=== PATIENT | male | born 1985 | race Caucasian/White ===

== ENCOUNTER 2020-01-04 09:56 | Emergency (ER) | payer OTHER ==
--- NOTE | 2020-01-04 11:31 | ED Physician Documentation ---
PD HPI LOWER EXT INJURY - Stated complaint Stated Complaint: RT LEG PX - Chief complaint Chief Complaint: Ext Problem - History obtained from History obtained from: Patient - History of Present Illness PD HPI LOW EXT INJURY LOCATION: Right, Lower leg, Ankle, Foot Type of injury: No: Fall, Twist Timing - onset: How many weeks ago (2) Timing - duration: Weeks (2) Timing - details: Intermittant Improved by: Rest Worsened by: Other (exercise - for 2 weeks he has had right lateral lower leg pain and cramping with exercise, consistently about 15 minutes into workout, and gets pain lateral right lower leg radiating to right lateral foot and feeling of numbness lateral/plantar foot and feeling of foot being weaker. It improves with rest. With the exercise, he gets feeling of swelling and pain lateral lower leg. No discoloration of the foot.) Associated symptoms: Weakness, Numbness, Swelling (lateral right lower leg with exercise.). No: Discolored Contributing factors: No: Anticoagulated, Prior ortho surgery Similar symptoms before: Has not had sx before Recently seen: Clinic (seem in [facility] today and referred to ER for evaluation) Review of Systems Constitutional: denies: Fever, Chills, Myalgias Nose: denies: Rhinorrhea / runny nose, Congestion Throat: denies: Sore throat Respiratory: denies: Cough GI: denies: Abdominal Pain, Nausea, Vomiting Skin: denies: Rash, Lesions PD PAST MEDICAL HISTORY - Past Medical History Past Medical History: No Cardiovascular: None Respiratory: None Musculoskeletal: None - Past Surgical History Past Surgical History: Yes Ortho: Rotator cuff repair HEENT: Myringotomy (tubes) - Present Medications Home Medications: Ambulatory Orders Medication Instructions Recorded Confirmed Naproxen 500 mg PO BID #20 tablet 01/04/20 - Allergies Allergies/Adverse Reactions: Allergies Allergy/AdvReac Type Severity Reaction Status Date / Time No Known Drug Allergies Allergy Verified 01/04/20 10:04 - Social History Does the pt smoke?: Yes Smoking Status: Current some day smoker Does the pt drink ETOH?: Yes Does the pt have substance abuse?: No - Immunizations Immunizations are current?: Yes PD ED PE NORMAL - Vitals Vital signs reviewed: Yes - General General: Alert and oriented X 3, No acute distress, Well developed/nourished, Other (very muscular, well developed) - Derm Derm: Normal color, Warm and dry - Extremities Extremities: Normal ROM s pain, No edema, No calf tenderness / cord, Other (lower leg appears normal now. ) - Neuro Neuro: Alert and oriented X 3, No motor deficit, No sensory deficit Results - Vitals Vitals: Vital Signs - 24 hr 01/04/20 01/04/20 10:02 14:18 Temperature 37 C Heart Rate 99 88 Respiratory 17 16 Rate Blood Pressure 137/81 H 130/85 H O2 Saturation 96 100 Oxygen O2 Source Room air - Labs Labs: Laboratory Tests 01/04/20 12:40 Sodium 137 Potassium 4.0 Chloride 102 Carbon Dioxide 26 Anion Gap 9.0 BUN 17 Creatinine 0.8 Estimated GFR (MDRD) 111 Glucose 92 Calcium 9.3 Total Bilirubin 0.9 AST 55 H ALT 118 H Alkaline Phosphatase 52 Total Creatine Kinase 178 Total Protein 8.2 Albumin 5.0 Globulin 3.2 Albumin/Globulin Ratio 1.6 Lipase 39 - Rads (name of study) duplex right lower leg Radiology: Prelim report reviewed (no DVT), See rad report PD MEDICAL DECISION MAKING - ED course Complexity details: considered differential (Sounds concerning for exertional compartment syndrome. He does not have symptoms at rest. He was seen in [facility] clinic and referred to ER with that concern, so I wonder if they were not distinguishing exertional from traumatic compartment syndrome or such, as exertional version is not emergent, but needs to not have the exertion until specialist evaluation. Did get CK to ensure no muscle injury with symptoms earlier today. and U/S to ensure not DVt instead. ), d/w patient, d/w testing consultant (Dr Montanez, drill press operator numerical control Ortho, and refers it to [facility] Orth[facility] as outpt. 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 You can use some anti- inflammatories such as naproxen twice daily for the next 7 to 10 days. Your ultrasound showed normal blood flow through the leg in the area. It does sound like it may be exertional compartment syndrome. Avoid the exertion and no prolonged standing or walking. Follow-up with orthopedics regarding further testing for this. [place]. Otherwise can follow-up with orthopedics here in [place]. Recheck if the discomfort is more consistent and even without exertion. Forms: Activity restrictions Discharge Date/Time: 01/04/20 14:19
[2020-01-04 13:07] LABS: ALBUMIN/GLOBULIN RATIO 1.6 (1.0-2.2); BILIRUBIN,TOTAL 0.9 mg/dL (0.2-1.0); CALCIUM 9.3 mg/dL (8.5-10.3); CREATININE 0.8 mg/dL (0.6-1.2); TOTAL PROTEIN 8.2 g/dL (6.7-8.2)
--- NOTE | 2020-01-04 13:32 | Ultrasound Report ---
Reason: right calf pain with exercise Procedure Date: 01/04/2020 Accession Number: [id number] / [id number] Procedure: US - Duplex Ext Veins Right CPT Code: Final Report FULL RESULT: EXAM: RIGHT LOWER EXTREMITY VENOUS ULTRASOUND EXAM DATE: 01/04/2020 12:58 PM. CLINICAL HISTORY: Right calf pain with exercise. COMPARISON: None. TECHNIQUE: Real-time sonographic vascular imaging was performed by the contact lens fitter through the lower extremity utilizing both color-flow and Doppler spectral analysis. Multiple new accounts banking representative static images were saved for review. FINDINGS: Common Femoral Vein (CFV): Normal. CFV-GSV Junction: Normal. Profunda Femoral Vein (PFV): Normal. Femoral Vein (FV) Prox: Normal. Femoral Vein (FV) Mid: Normal. Femoral Vein (FV) Dist: Normal. Popliteal Vein: Normal. Posterior Tibial Veins: Normal. Peroneal Veins: Normal. Other: None. IMPRESSION: No evidence for deep venous thrombosis. [facility]
[2020-01-04 14:19] VITALS: BP 130/85
== END 2020-01-04 14:19 | disposition home or self-care (01) ==
LOC: ED 09:56
DX: T79.A21A Traumatic compartment syndrome of right lower extremity, initial encounter (principal); X50.9XXA Other and unspecified overexertion or strenuous movements or postures, initial encounter; F17.200 Nicotine dependence, unspecified, uncomplicated
CPT/HCPCS: 36415; 80053; 82550; 83690; 86850; 86900; 86901; 99283; 99284